=== PATIENT | male | born 1960 ===

== ENCOUNTER 2020-12-16 09:49 | Emergency (ER) | payer SELFPAY ==
[~2020-12-16] VITALS: Ht 167.6 cm; Wt 67.4 kg
[2020-12-16 10:21] VITALS: BP 142/94
[2020-12-16] MEDS ORDERED: DEXAMETHASONE 4 MG/ML, 1ML PO ONE (10:30)
--- NOTE | 2020-12-16 12:02 | NUR ---
TRIAGE TECH: [id number] FOR SECOND SET OF VITALS.
== END 2020-12-16 12:09 | disposition left against medical advice (07) ==
LOC: ED 11:32
DX: U07.1 COVID-19 (principal); B34.9 Viral infection, unspecified
CPT/HCPCS: 71045; 99284; U0003; U0005